=== PATIENT | male | born 1995 | race Two or more races ===

== ENCOUNTER 2020-09-09 22:55 | Emergency (ER) | payer MEDICAID, OTHER ==
[~2020-09-09] VITALS: Ht 175.3 cm; Wt 90.7 kg
[2020-09-09 23:00] VITALS: BP 177/102
--- NOTE | 2020-09-10 01:32 | NUR ---
Patient discharged to home in stable condition. Written and verbal after care instructions given. Patient verbalizes understanding of instruction.
--- NOTE | 2020-09-10 01:35 | NUR ---
Patient is ambulatory with a steady gait
== END 2020-09-10 01:41 | disposition home or self-care (01) ==
LOC: ER 22:58 → EDBD 22:58 → ER 09-10 01:41
DX: F15.90 Other stimulant use, unspecified, uncomplicated (principal); J45.909 Unspecified asthma, uncomplicated